=== PATIENT | female | born 1985 | race Caucasian/White ===

== ENCOUNTER 2022-06-24 10:05 | Outpatient (CLI) | payer BC ==
[2022-06-24] MEDS ORDERED: Magnevist 469MG/ML 20 ML VIAL ONE (17:33)
== END 2022-06-24 10:06 | disposition home or self-care (01) ==
LOC: MRI 10:05
PROVIDERS: ATTEND Otolaryngology
DX: H90.41 Sensorineural hearing loss, unilateral, right ear, with unrestricted hearing on the contralateral side (principal); H93.8X1 Other specified disorders of right ear
CPT/HCPCS: 70553; A9579